=== PATIENT | male | born 1965 | race Caucasian/White ===

== ENCOUNTER 2017-04-12 22:04 | Emergency (ER) | payer BC ==
--- NOTE | ~2017-04-12 | CR72 ---
[facility] A Service of [facility] & [facility] RADIOLOGY TEXT RESULTS PATIENT: ANNALEE ARRINGTON LOCATION: [facility] : 69 UNIT #: [id number] AGE: [address]: Armen Linn MD SEX: M ORDER DR: [id number] [facility] [address] [place], [place] [address] [id number] E MR#: [id number] Acc #: [id number] NAME: ANNALEE ARRINGTON : 1965 SEX: M STUDY DATE/TIME: 04/13/2017 0123 UNIT: [facility] ROOM: STUDY DESCRIPTION: CR Chest Single View Portable Attending Physician: Mino Linn M.D. Ordering Physician: Ed Doc Penelope Sanon Primary Care Physician: Dwain Greenberg M.D. MEDICAL IMAGING REPORT This report is preliminary unless electronic signature is present EXAM Portable chest, 04/13 at 0123. INDICATION Chest pain, shortness of air, and weakness today. COMPARISON 10/29/2010 FINDINGS A single AP portable view of the chest shows both lungs to be clear. The heart is normal in size. The mediastinal contour is normal. No significant bone abnormalities are seen. IMPRESSION Normal portable chest. Dictated by... Lul Lanier Jr., M.D. THIS IS AN ELECTRONICALLY VERIFIED REPORT Lul Lanier Jr., M.D. at 04/14/2017 3:13 AM MYKE/juan ramon TD: 04/13/2017 20:48 JOB #: [id number] MEDICAL IMAGING REPORT Page 1 of 1 COPY
--- NOTE | ~2017-04-12 | EKG ---
PATIENT: ANNALEE ARRINGTON UNIT #: [id number] Ventricular Rate: 75 BPM Atrial Rate: 75 BPM P-R Interval: 164 ms QRS Duration: 82 ms Q-T Interval: 402 ms QTC Calculation(Bezet): 448 ms P [place]: 47 degrees Calculated R [place]: 52 degrees Calculated T [place]: 36 degrees Diagnosis Line: Sinus rhythm with occasional Premature ventricular Diagnosis Line: complexes Diagnosis Line: Possible Left atrial enlargement Diagnosis Line: Borderline ECG Diagnosis Line: No previous ECGs available Diagnosis Line: Confirmed by SYLVIA FRANCIS MD ([id number]) on 04/13/2017 Diagnosis Line: 3:09:30 PM INTERPRETING MD: PENNY SHIPLEY
[~2017-04-12 22:04] MED LIST: CLINDAMYCIN HC300 MG PO
[2017-04-12 23:18] LABS: POC - CKMB 1.5 ng/mL (0.0-7.9); POC - TROPONIN <0.05 ng/mL (<=0.05)
[2017-04-13 00:50] LABS: BASOPHIL# 0.1 X10e3 (0-0.3); BASOPHIL% 1.1 % (0-2.5); EOSINOPHIL# 0.4 X10e3 (0-0.7); EOSINOPHIL% 5.1 % (0.0-7.0); HEMATOCRIT 44.6 % (38.0-50.0); HEMOGLOBIN 14.8 gm/dL (13.0-16.0); LYMPHOCYTE# 2.1 X10e3 (1.0-3.5); LYMPHOCYTE% 29.3 % (17.0-45.0); MEAN CELL VOLUME 92.6 FL (83-96); MEAN CORPUSCULAR HEMOGLOBIN 30.8 PG (28-34); MEAN CORPUSCULAR HGB CONC 33.3 g/dL (30-36); MEAN PLATELET VOLUME 9.2 FL (6.5-11.5); MONOCYTE# 0.8 X10e3 (0-1.0); MONOCYTE% 10.5 % (3.0-12.0); NEUTROPHIL# 3.9 X10e3 (1.5-7.1); PLATELET COUNT 187 X10e3 (140-420); RED BLOOD COUNT 4.82 X10e (3.90-5.60); RED CELL DISTRIBUTION WIDTH 13.8 % (11.0-15.5); WHITE BLOOD COUNT 7.2 X10e3 (4.0-10.5)
[2017-04-13 00:51] LABS: POC - CKMB 1.1 ng/mL (0.0-7.9); POC - TROPONIN <0.05 ng/mL (<=0.05)
[2017-04-13 00:52] LABS: DIFF IND NO
[2017-04-13 00:55] LABS: PARTIAL THROMBOPLASTIN TIME 28.2 SECONDS (23.5-31.3); PROTHROMBIN TIME (PATIENT) 10.7 SECONDS (10.0-11.7)
[2017-04-13 00:59] LABS: CALCIUM SERUM 9.1 mg/dL (8.4-10.2); MAGNESIUM 2.5 mg/dL (1.6-3.0); POTASSIUM 3.7 mmol/L (3.5-5.1)
== END 2017-04-13 02:15 | disposition home or self-care (01) ==
LOC: CED 22:04
PROVIDERS: Emergency Medicine
DX: R00.2 Palpitations (principal); I10 Essential (primary) hypertension; E03.9 Hypothyroidism, unspecified; Z88.0 Allergy status to penicillin
CPT/HCPCS: 36415; 71010; 80048; 82553; 83735; 84443; 84484; 85025; 85610; 85730; 93005; 99285